=== PATIENT | male | born 1945 | race Caucasian/White ===

== ENCOUNTER → 2020-04-29 | Outpatient (CLI) | payer MEDICARE ==
[2020-04-29 11:17] LABS: BILIRUBIN Negative (Negative); BLOOD 1+ (Negative); CLARITY Clear (Clear); COLOR Yellow (Yellow); GLUCOSE Negative (Negative); KETONE Negative (Negative); LEUKO ESTERASE Trace (Negative); NITRITE Negative (Negative); UROBILINOGEN 0.2 E.U./dl (0.0-1.0)
[2020-04-29 11:53] LABS: THYROID STIM HORMONE (HS) 1.61 uIU/ml (0.358-4.75)
[2020-04-29 12:29] LABS: BACTERIA TRACE
[2020-04-30 07:06] LABS: RHEUMATOID ARTHRITIS FACTOR <10.0 IU/mL (0.0-13.9)
== END | disposition home or self-care (01) ==
LOC: LAB 10:46
PROVIDERS: ATTEND Specialist
DX: L50.0 Allergic urticaria (principal); R53.83 Other fatigue

== ENCOUNTER 2024-08-27 15:23 | Emergency (ER) | payer MEDICARE ==
[~2024-08-27] VITALS: Wt 114.3 kg
== END 2024-08-27 16:54 | disposition home or self-care (01) ==
LOC: ED 15:23
DX: S05.12XA Contusion of eyeball and orbital tissues, left eye, initial encounter (principal); W22.8XXA Striking against or struck by other objects, initial encounter; Y93.89 Activity, other specified; Y92.89 Other specified places as the place of occurrence of the external cause; Y99.8 Other external cause status